=== PATIENT | female | born 1945 ===

== ENCOUNTER 2018-10-22 14:06 | Emergency (ER) | payer MEDICARE ==
[~2018-10-22] VITALS: Ht 152.4 cm; Wt 69.1 kg
[2018-10-22 14:20] VITALS: Ht 152.4 cm; Wt 69.1 kg
[2018-10-22] MEDS ORDERED: CHEMO MEDS (14:21)
[2018-10-22] MEDS ORDERED: LISINOPRIL-HCT1 EAC4 PO (14:22)
[2018-10-22] MEDS ORDERED: MAG (14:22)
[2018-10-22] MEDS ORDERED: ASPIRIN325 MG PO (14:22)
[2018-10-22 15:04] LABS: BASOPHILS 0 % (0-2); EOSINOPHILS 0 % (0-7); HEMOGLOBIN 8.5 g/dL (12-16); IMMATURE GRANULOCYTES 13.6 % (0-5); LYMPHOCYTES 6.3 % (15-50); MCH 32.7 pg (26.0-34.0); MCHC 35.4 g/dL (31.0-37.0); MCV 92.3 fL (80.0-100.0); MEAN PLATELET VOLUME 10.4 fL (7.4-10.4); MONOCYTES 1.5 % (2-11); NEUTROPHILS 78.6 % (40-80); PLATELET COUNT 69 10x3/uL (130-400); WBC 4.6 10x3/uL (4.8-10.8)
[2018-10-22 15:20] LABS: PLATELET ESTIMATE DECREASED
[2018-10-22 15:31] LABS: ALBUMIN 3.4 g/dL (3.4-5.0); ANION GAP 9.9 mmol/L (8-16); BILIRUBIN - TOTAL 0.42 mg/dL (0.2-1.3); CALCIUM 9.6 mg/dL (8.5-10.1); CARBON DIOXIDE 26.8 mmol/L (21.0-32.0); CREATININE - SERUM 0.9 mg/dL (0.6-1.3); POTASSIUM - SERUM 3.7 mmol/L (3.5-5.1); PROTEIN - SERUM 5.9 g/dL (6.4-8.2)
[2018-10-22 17:47] LABS: APPEARANCE CLEAR (CLEAR); BILIRUBIN NEGATIVE (NEGATIVE); COLOR YELLOW (YELLOW); GLUCOSE NEGATIVE (NEGATIVE); KETONE NEGATIVE (NEGATIVE); NITRITE NEGATIVE (NEGATIVE); PROTEIN NEGATIVE (NEGATIVE); SPECIFIC GRAVITY 1.005 (1.005-1.020); UROBILINOGEN NORMAL (NORMAL)
[2018-10-22 23:48] VITALS: BP 127/61
== END 2018-10-22 23:48 | disposition home or self-care (01) ==
LOC: D.ER 14:06
PROVIDERS: Family Medicine
DX: R53.1 Weakness (principal); C85.90 Non-Hodgkin lymphoma, unspecified, unspecified site; I10 Essential (primary) hypertension